=== PATIENT | male | born 1960 | race Caucasian/White ===

== ENCOUNTER 2017-01-13 10:38 | Observation (INO) | payer BC ==
[2017-01-13] MEDS ORDERED: NS 0.9% 1000 ML* 2,000 ML IV ONE (11:04)
[2017-01-13 11:19] LABS: Hematocrit 47 % (42-52); Hemoglobin 16.4 g/dl (14.0-18.0); Mean Corpuscular HGB Conc 35 g/dl (31-36); Mean Corpuscular Hemoglobin 30 pg (27-31); Mean Corpuscular Volume 86 fL (80-94); Mean Platelet Volume 9 um3 (7.4-10.4); Red Blood Count 5.42 10^6/ul (4.0-5.4); Red Cell Distribution Width 13 % (10.5-15)
[2017-01-13 11:30] LABS: Albumin 4.7 g/dL (3.2-5.2); BUN/Creatinine Ratio 14.4 (8-20); Calcium 9.6 mg/dL (8.6-10.3); EGFR African American 88.1 (>60); EGFR Non-African American 68.5 (>60); Globulin 2.5 g/dL (2-4); Magnesium 1.9 mg/dL (1.9-2.7); Potassium 3.6 mmol/L (3.5-5.0); Total Bilirubin 1.3 mg/dL (0.2-1.0); Total Protein 7.2 g/dL (6.4-8.9)
[2017-01-13] MEDS ORDERED: Aspirin Low Dose CHEW TAB* 81 MG PO ONE (11:36)
[2017-01-13 11:57] LABS: TSH (Thyroid Stimulating Horm) 2.3 mcIU/mL (0.34-5.60)
--- NOTE | 2017-01-13 12:23 | RAD ---
INDICATION: Short of breath. Pneumonia COMPARISON: None TECHNIQUE: An AP portable view obtained at 1116 hours is submitted. FINDINGS: Bones/Soft Tissues: There are no acute bony findings. Cardiomediastinal: The cardiomediastinal silhouette is normal. Lungs: There are no infiltrates. Pleura: There are no pleural effusions. Other: None IMPRESSION: NEGATIVE EXAMINATION.
--- NOTE | 2017-01-13 12:59 | ED ---
[place] Billy, scribed for Indra Franks MD on 01/13/17 at 1131 . Palpitations / Dysrhythmia - HPI Summary HPI Summary: Patient is a 56 year-old male coming to [facility] for evaluation of palpitations this morning at approximately 1000. Patient was cleaning out the glove box of his truck when he began to feel a fluttering sensation in his chest. 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 He visited his in-laws, who have a pulse oximiter, and he said his heart rate and rhythm were both irregular. When asked if he had chest pain, he states that he may have had chest tightness, but he is not clear in his description. He denies any pain or swelling in his legs. No diaphoresis this morning. Positive headache. He denies any changes in his normal routine. Patient had two cups of coffee this morning, as usual. He states that the only change was that he took 2x Tylenol last night for his back pain, which he normally does not. Takes daily ASA. Denies any recent travel. He has not had any recent stress tests in the last 6 months. - History of Current Complaint Chief Complaint: EDDysrhythmPalp Time Seen by Provider: 01/13/17 11:08 Hx Obtained From: Patient Onset/Duration: Gradual Onset, Lasting Hours, Still Present Timing: Constant Severity Initially: Moderate Severity Currently: Moderate Character: Fluttering Aggravating: Nothing Alleviating: Nothing Associated Signs & Symptoms: Chest Pain - tightness, Shortness of Breath - Allergy/Home Medications Allergies/Adverse Reactions: Allergies Allergy/AdvReac Type Severity Reaction Status Date / Time No Known Allergies Allergy Verified 01/13/17 12:30 Home Medications: Home Medications Allopurinol TAB* [Zyloprim 100 MG TAB*] 100 mg PO DAILY 01/13/17 [History Confirmed 01/13/17] Enalapril Maleate & Hydrochlor [Enalapril Maleate/Hydroch 5-12.5 mg] 1 tab PO BID 01/13/17 [History Confirmed 01/13/17] Nystatin/Triamcinolone CR(NF) [Mycolog CREAM(NF)] 1 applic TOPICAL BID 01/13/17 [History Confirmed 01/13/17] Omeprazole CAP* [Prilosec CAP* 20 MG] 20 mg PO DAILY 01/13/17 [History Confirmed 01/13/17] metFORMIN* [Glucophage 500 MG TAB *] 500 mg PO BID 01/13/17 [History Confirmed 01/13/17] PMH/Surg Hx/FS Hx/Imm Hx Endocrine/Hematology History: Reports: Hx Diabetes Cardiovascular History: Reports: Hx Hypertension GI History: Reports: Hx Gastroesophageal Reflux Disease Musculoskeletal History: Reports: Hx Back Problems Infectious Disease History: Yes Infectious Disease History: Denies: Traveled Outside the [place] in Last 30 Days - Family History Known Family History: Positive: Cardiac Disease - mother [place] at age 46, Blood Disorder - Clotting disorder Family History: Mother and sister with breath cancer. Grandmother with lymphoma. Brother with brain tumor. Father is alive and well. - Social History Alcohol Use: None Substance Use Type: Reports: None Smoking Status (MU): Never Smoked Tobacco Review of Systems Negative: Fever, Chills, Skin Diaphoresis Negative: Sore Throat, Ear Ache, Nasal Discharge Positive: Palpitations, Chest Pain - tightness Positive: Shortness Of Breath. Negative: Cough Negative: Abdominal Pain, Vomiting, Diarrhea, Nausea Positive: Headache All Other Systems Reviewed And Are Negative: Yes Physical Exam - Summary Physical Exam Summary: The patient is well-nourished in no acute distress and in no acute pain. The skin is warm and dry and skin color reflects adequate perfusion. HEENT: The head is normocephalic and atraumatic. The pupils are equal and reactive. The conjunctivae are clear and without drainage. Nares are patent and without drainage. Mouth reveals moist mucous membranes and the throat is without erythema and exudate. The external ears are intact. The ear canals are patent and without drainage. The tympanic membranes are intact. Neck is supple with full range of motion and non-tender. There are no carotid bruits. There is no neck vein distension. Respiratory: Chest is non-tender. Lungs are clear to auscultation and breath sounds are symmetrical and equal. Cardiovascular: Heart is regularly tachycardic. There is no murmur or rub auscultated. There is no peripheral edema and pulses are symmetrical and equal. Abdomen: The abdomen is soft and non-tender. There are normal bowel sounds heard in all four quadrants and there is no organomegaly palpated. No CVA tenderness. Musculoskeletal: There is no back pain noted. Extremities are non-tender with full range of motion. There is good capillary refill. There is no peripheral edema or calf tenderness elicited. Neurological: Patient is alert and oriented to person, place and time. The patient has symmetrical motor strength in all four extremities. Cranial nerves are grossly intact. Deep tendon reflexes are symmetrical and equal in all four extremities. Psychiatric: The patient has an appropriate affect and does not exhibit any anxiety or depression. Triage Information Reviewed: Yes Vital Signs On Initial Exam: Initial Vitals Temp Pulse Resp BP Pulse Ox 98.2 F 70 18 121/106 99 01/13/17 10:38 01/13/17 10:38 01/13/17 10:38 01/13/17 10:38 01/13/17 10:38 Vital Signs Reviewed: Yes - [place] Coma Scale Coma Scale Total: 15 Diagnostics - Vital Signs Vital Signs Temp Pulse Resp BP Pulse Ox 01/13/17 11:00 124 20 142/92 98 01/13/17 10:52 105 96 01/13/17 10:49 154/91 01/13/17 10:38 98.2 F 70 18 121/106 99 - Laboratory Lab Results: Lab Results 01/13/17 Range/Units 11:00 WBC 7.0 (3.5-10.8) 10^3/ul RBC 5.42 H (4.0-5.4) 10^6/ul Hgb 16.4 (14.0-18.0) g/dl Hct 47 (42-52) % MCV 86 (80-94) fL MCH 30 (27-31) pg MCHC 35 (31-36) g/dl RDW 13 (10.5-15) % Plt Count 189 (150-450) 10^3/ul MPV 9 (7.4-10.4) um3 Neut % (Auto) 57.9 (38-83) % Lymph % (Auto) 25.8 (25-47) % [place] % (Auto) 6.5 (1-9) % Eos % (Auto) 8.6 H (0-6) % Baso % (Auto) 1.2 (0-2) % Absolute Neuts (auto) 4.1 (1.5-7.7) 10^3/ul Absolute Lymphs (auto) 1.8 (1.0-4.8) 10^3/ul Absolute Monos (auto) 0.5 (0-0.8) 10^3/ul Absolute Eos (auto) 0.6 (0-0.6) 10^3/ul Absolute Basos (auto) 0.1 (0-0.2) 10^3/ul Absolute Nucleated RBC 0.02 10^3/ul Nucleated RBC % 0.3 Result Diagrams: 01/13/17 11:00 01/13/17 11:00 Lab Statement: Any lab studies that have been ordered have been reviewed, and results considered in the medical decision making process. - Radiology CXR Radiology Interpretation Completed By: Radiologist - NEGATIVE EXAMINATION. - EKG 1049 EKG Interpretation: sinus tachycardia 100 bpm, normal axis, no STEMI Re-Evaluation - Re-Evaluation First Eval Re-Evaluation Time: 11:46 Change: Unchanged Comment: Labs and imaging reviewed. Course/Dx - Course Assessment/Plan: 56 year-old male coming to [facility] with concern for palpitations this morning. Patient is at moderate risk for WA, score of 4 according to MDCalc. Lactic acid is 2.2. Troponin is 0.00. CXR is negative for acute pathology. EKG shows sinus tachycardia with no ST elevation. In the ED course, patient was given IV fluids for hydration as well as ASA. Patient care reviewed with hospitalist Dr. Chamberlain, who accepted the patient for admission. - Diagnoses Differential Diagnosis/HQI/PQRI: Positive: Cardiomyopathy, Coronary Artery Disease, Hypokalemia, Paroxymal SVT, Other - dehydration, lactic acidosis, Provider Diagnoses: Chest pain, Palpitations - Physician Notifications Discussed Care Of Patient With: Dr. Chamberlain (hospitalist) @ 1150: accepts admission. Discharge - Discharge Plan Condition: Stable Disposition: ADMITTED TO [facility] Referrals: Ashok Welsh MD [Primary Care Provider] - The documentation as recorded by the [place] Billy accurately reflects the service I personally performed and the decisions made by , Indra Franks MD.
[2017-01-13] MEDS ORDERED: Magnesium Oxide TAB* 400 MG PO ONE (15:11)
[2017-01-13] MEDS ORDERED: Potassium Chlor TAB* 20 MEQ TAB.ER PO ONE (15:11)
[2017-01-13] MEDS ORDERED: Baclofen TAB* 10 MG PO PRN (15:12)
[2017-01-13] MEDS ORDERED: Cyclobenzaprine TAB* 10 MG PO PRN (15:12)
[2017-01-13] MEDS ORDERED: Dextrose 50% Syringe 50 ML* 25 GM/50 ML SYRINGE IV PUSH PRN (15:13)
[2017-01-13 15:52] LABS: HDL Cholesterol 29.3 mg/dL
[2017-01-13] MEDS: Insulin LISPRO* 1 UNITS UNIT SUBCUT SCH (15:59)
--- NOTE | 2017-01-13 19:05 | HP ---
HOSPITAL MEDICINE HISTORY AND PHYSICAL: DATE OF ADMISSION: 01/13/17 PRIMARY CARE PHYSICIAN: Dr. Welsh. ATTENDING PHYSICIAN: Amelia Atkinson MD *(dictation provided by Meera Clarke NP) . CHIEF COMPLAINT: Palpitations and left arm discomfort. HISTORY OF PRESENT ILLNESS: Mr. Patel is a 56-year-old male with past medical history of hypertension and diabetes who presents to the hospital today with concern for palpitations and odd sensation in his left arm. Mr. Patel states that last evening he had a little bit more back pain than usual and therefore took 2 Tylenol PM. He was able to fall asleep easily. He does have history of chronic back and neck pain. He woke up this morning and was feeling okay. 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 When he got back home, he was cleaning out the glove box when he had a feeling of palpitations in his chest. He describes feeling his heart pounding and beating quickly. In the past he had sometimes associated these symptoms with spasms in his esophagus. 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 On the way up there, he felt like he was a little bit more short of breath than usual and also felt an odd sensation in his left arm. He denies any discrete chest pain. Palpitations continued and he ultimately called his daughter to bring him to the emergency room for evaluation. In the emergency room, he has no further sensation of discomfort or palpitations. He states he has had no fevers, no chills, no cough, no abdominal pain. He has been eating and drinking normally. In the emergency room, Mr. Patel had an EKG which showed a sinus rhythm with a heart rate of 100. There is no evidence of ischemia. He had a first troponin which was 0.00, but based on his concern for palpitations and chest pain, Hospital Medicine was called regarding admission. PAST MEDICAL HISTORY: 1. Hypertension. 2. GERD. 3. History of chronic sinusitis. 4. Obstructive sleep apnea with home CPAP. 5. Type 2 diabetes, noninsulin dependent. 6. Gout. MEDICATIONS: 1. Econazole 1% cream 1 application topically b.i.d. 2. Enalapril/hydrochlorothiazide 5/12.5 mg 1 tab p.o. b.i.d. 3. Nystatin/triamcinolone cream 1 application topically b.i.d. 4. Metamucil 0.52 g p.o. daily. 5. Metformin 500 mg p.o. b.i.d. 6. Allopurinol 100 mg p.o. daily. 7. Aspirin 81 mg p.o. daily. 8. Baclofen 10 mg p.o. t.i.d. p.r.n. 9. Cholecalciferol 1000 units p.o. daily. 10. Cyclobenzaprine 10 mg p.o. t.i.d. 11. Omeprazole 20 mg p.o. daily. ALLERGIES: No known drug allergies. FAMILY HISTORY: The patient reports his mother had breast cancer and also heart attack at age 40. Sister had breast cancer. Grandmother had lymphoma. Brother had a brain tumor. SOCIAL HISTORY: No history of tobacco use or drug use. The patient states he drinks alcohol occasionally. The last drink was 2 weeks ago. REVIEW OF SYSTEMS: A 14-point review of systems was completed on Mr. Patel and all those not mentioned above were negative. PHYSICAL EXAMINATION GENERAL: Mr. Patel is sitting up in the bed, he is in no acute distress. He is calm and cooperative with my examination. VITAL SIGNS: Temperature 98.2, heart rate 94, respiratory rate 24, O2 saturation 96% on room air, blood pressure 125/81. HEENT: Extraocular movements are intact. LUNGS: Clear to auscultation bilaterally with no accessory muscle use and good aeration. HEART: S1 and S2. No murmur, rub, or gallop and regular. ABDOMEN: Soft, nontender with bowel sounds positive x4. EXTREMITIES: No cyanosis or edema. SKIN: Intact. NEUROLOGIC: He is alert and oriented x3. Moves all extremities equally. There is no facial asymmetry or focal weakness. DIAGNOSTIC STUDIES/LAB DATA: Sodium 136, potassium 3.6, chloride 102, serum bicarbonate 24, BUN 16, creatinine 1.11, glucose 155, lactic acid 2.2, troponin 0.00, TSH 2.30. Chest x-ray shows negative examination. EKG shows sinus rhythm with heart rate of 100 and no evidence of ischemia. ASSESSMENT/PLAN: Mr. Patel is a 56-year-old male with past medical history of hypertension, obesity and diabetes as well as obstructive sleep apnea on CPAP, who presents today to the hospital with concern for palpitations, mild shortness of breath and "funny feeling" in his left arm. Plans are for observation in the hospital for the followin. Palpitations. The patient's description of his symptoms are certainly concerning for atrial fibrillation. He states that he has had these symptoms on and off for many years, and has always thought they were associated with his esophagus and GERD. Although this is possible, I think it is prudent to monitor him overnight with telemetry monitoring. He has risk factors of caffeine use, intermittent binge drinking, hypertension and obesity. I did prenatal genetic counselor the patient that if atrial fibrillation is not found during this hospitalization that it would be important for him to follow up with his primary care physician regarding outpatient monitoring as well. 2. Left arm "funny feeling" and shortness of breath. This was in the setting of palpitations and could be related to potential atrial fibrillation. However , the patient has extensive risk factors for coronary artery disease with hypertension, diabetes, and obesity. Plan for troponins x2 this evening and then stress test tomorrow. 3. Obstructive sleep apnea. Continue home CPAP. 4. Hypertension. Plan to continue home enalapril and hydrochlorothiazide. 5. Chronic back pain. Continue baclofen or Flexeril as needed. 6. Type 2 diabetes. Plan for insulin as needed with blood glucose sliding scale with meals. Hold metformin. 7. DVT prophylaxis with heparin subcu. 8. Disposition to telemetry floor. TIME SPENT: Approximately 60 minutes were spent on the admission of this patient; more than half of the time spent with the patient at the bedside, reviewing the events leading up to this hospitalization, performing the physical examination and reviewing the plan of care. MEERA CLARKE NP CC: Dr. Welsh* [id number]/[facility] #: [id number] DOMENICA
[2017-01-13] MEDS ORDERED: Omeprazole CAP* 20 MG PO SCH (22:00)
[2017-01-13] MEDS: Enalapril TAB* 5 MG PO SCH (22:51)
[2017-01-13] MEDS: Heparin VIAL(*) 5000 UNITS/ML VIAL (FIVE THOUSAND) SUBCUT SCH (22:52)
[2017-01-13] MEDS: Hydrochlorothiazide TAB* 25 MG PO SCH (22:52)
[2017-01-14] MEDS: Heparin VIAL(*) 5000 UNITS/ML VIAL (FIVE THOUSAND) SUBCUT SCH ×2 (07:08→12:55)
[2017-01-14] MEDS ORDERED: Allopurinol TAB* 100 MG PO SCH (09:00)
[2017-01-14] MEDS ORDERED: Enalapril TAB* 5 MG PO SCH (09:00)
[2017-01-14] MEDS ORDERED: Hydrochlorothiazide TAB* 25 MG PO SCH (09:00)
[2017-01-14] MEDS ORDERED: Aspirin EC Low Dose* 81 MG TAB.EC PO SCH (09:00)
[2017-01-14] MEDS ORDERED: Cholecalciferol TAB* 1000 UNITS PO SCH (09:00)
[2017-01-14] MEDS: Insulin LISPRO* 1 UNITS UNIT SUBCUT SCH ×2 (11:15→11:16)
--- NOTE | 2017-01-14 11:39 | RAD ---
Edited for charges. INDICATION: Hypertension with a family history of cardiac disease. COMPARISON: Chest x-ray January 13, 2017 TECHNIQUE: SPECT imaging was performed. Rest images were acquired following the intravenous injection of 10.7 millicuries of technetium 99m tetrofosmin at 0635 hours. At 1010 hours stress images were acquired following the intravenous administration of 25.02 millicuries of technetium 99m tetrofosmin. The patient received intravenous Lexiscan prior to the stress image acquisition. FINDINGS: There are no defects of the stress-induced or fixed nature. The cardiac chamber size is normal. There are no wall motion abnormalities. The ejection fraction is calculated at 60% during stress imaging. IMPRESSION: No scintigraphic evidence of ischemia or infarction. ASSESSMENT: Low risk MTDD
[2017-01-14 11:47] VITALS: BP 124/82
[2017-01-14] MEDS: Enalapril TAB* 5 MG PO SCH (12:53)
[2017-01-14] MEDS: Hydrochlorothiazide TAB* 25 MG PO SCH (12:54)
--- NOTE | 2017-01-14 14:02 | PN ---
Subjective Date of Service: 01/14/17 Interval History: Mr. Patel states that he is feeling well today and is eager for discharge. Objective Active Medications: Allopurinol (Zyloprim Tab*) 100 mg PO DAILY CHEPE Aspirin (Aspirin Ec Low Dose*) 81 mg PO DAILY [facility]PE Baclofen (Lioresal Tab*) 10 mg PO TID PRN Cholecalciferol (Vitamin D Tab*) 1,000 units PO DAILY CHEPE Cyclobenzaprine HCl (Flexeril Tab*) 10 mg PO TID PRN Dextrose (D50w Syringe 50 Ml*) 12.5 gm IV PUSH .FOR FS < 60 - SS PRN Enalapril Maleate (Vasotec Tab*) 5 mg PO BID CHEPE Heparin Sodium (Porcine) (Heparin Vial(*)) 5,000 units SUBCUT Q8HR CHEPE Hydrochlorothiazide (Hydrodiuril Tab*) 12.5 mg PO BID [facility] Insulin Human Lispro (Humalog*) 0 units SUBCUT AC CHEPE Omeprazole (Prilosec Cap*) 20 mg PO 2100 CHEPE Vital Signs 01/13/17 01/13/17 01/13/17 16:08 19:20 19:45 Temperature 97.6 F 98.2 F Pulse Rate 68 68 67 Respiratory 22 19 16 Rate Blood Pressure 120/71 128/54 118/68 (mmHg) O2 Sat by Pulse 96 98 96 Oximetry 01/13/17 01/13/17 01/14/17 23:20 23:44 03:19 Temperature 97.2 F 97.2 F 97.7 F Pulse Rate 69 69 60 Respiratory 20 20 20 Rate Blood Pressure 107/49 107/49 114/44 (mmHg) O2 Sat by Pulse 98 98 94 Oximetry 01/14/17 01/14/17 07:49 11:28 Temperature 98.1 F 98.2 F Pulse Rate 68 74 Respiratory 18 18 Rate Blood Pressure 108/69 124/82 (mmHg) O2 Sat by Pulse 98 95 Oximetry Oxygen Devices in Use Now: None Appearance: Male sitting up in chair in NAD Respiratory: Symmetrical Chest Expansion and Respiratory Effort, Clear to Auscultation Cardiovascular: NL Sounds; No Murmurs; No JVD, No Edema Extremities: No Edema Skin: No Rash or Ulcers Neurological: Alert and Oriented x 3, NL Muscle Strength and Tone Nutrition: Taking PO's Result Diagrams: 01/13/17 11:00 01/13/17 11:00 Additional Lab and Data: Lab Results 01/13/17 Range/Units 11:00 WBC 7.0 (3.5-10.8) 10^3/ul RBC 5.42 H (4.0-5.4) 10^6/ul Hgb 16.4 (14.0-18.0) g/dl Hct 47 (42-52) % MCV 86 (80-94) fL MCH 30 (27-31) pg MCHC 35 (31-36) g/dl RDW 13 (10.5-15) % Plt Count 189 (150-450) 10^3/ul MPV 9 (7.4-10.4) um3 Neut % (Auto) 57.9 (38-83) % Lymph % (Auto) 25.8 (25-47) % [place] % (Auto) 6.5 (1-9) % Eos % (Auto) 8.6 H (0-6) % Baso % (Auto) 1.2 (0-2) % Absolute Neuts (auto) 4.1 (1.5-7.7) 10^3/ul Absolute Lymphs (auto) 1.8 (1.0-4.8) 10^3/ul Absolute Monos (auto) 0.5 (0-0.8) 10^3/ul Absolute Eos (auto) 0.6 (0-0.6) 10^3/ul Absolute Basos (auto) 0.1 (0-0.2) 10^3/ul Absolute Nucleated RBC 0.02 10^3/ul Nucleated RBC % 0.3 Assess/Plan/Problems-Billing Assessment: Mr. Patel is a 56 yo male with a PMH of HTN and DM who was admitted with palpitations and left arm discomfort. - Patient Problems (1) Palpitations Comment: No evidence of arrhythmia on telemetry, however patient did not have any symptoms of palpitations while admitted. Recommend follow up with PCP and Cardiology for outpatient monitoring as have high suspicion for afib given description of symptoms. Patient aware and plans follow up with Dr. Kelley if possible. (2) Left arm pain Comment: Resolved. Concerned that this was a cardiac equivalent. However trops and stress test negative. (3) Hypertension Comment: BP well controlled continue home meds. (4) Diabetes Comment: Continue home metformin. Status and Disposition: Discharge to home.
--- NOTE | 2017-01-15 04:33 | DS ---
[facility] MEDICINE DISCHARGE SUMMARY: DATE OF ADMISSION: 01/13/17 DATE OF DISCHARGE: 01/14/17 ATTENDING PHYSICIAN: Anne Cooper MD * (dictated by Meera Clarke NP) PRIMARY CARE PHYSICIAN: Dr. Welsh. PRIMARY DIAGNOSIS: Palpitations with left arm discomfort. SECONDARY DIAGNOSES: 1. Hypertension. 2. Diabetes, [id number]. 3. Chronic sinusitis. 4. Obstructive sleep apnea, home CPAP. 5. Gout. 6. Gastroesophageal reflux disease. MEDICATIONS AT THE TIME OF DISCHARGE: No medication changes. 1. Econazole 1% cream 1 application topically b.i.d. 2. Enalapril/hydrochlorothiazide 5/12.5 mg 1 tab p.o. b.i.d. 3. Nystatin/triamcinolone cream 1 application topically b.i.d. 4. Metamucil 0.52 g p.o. daily. 5. Metformin 500 mg p.o. b.i.d. 6. Allopurinol 100 mg p.o. daily. 7. Aspirin 81 mg p.o. daily. 8. Baclofen 10 mg p.o. t.i.d. p.r.n. 9. Cholecalciferol 1000 units p.o. daily. 10. Cyclobenzaprine 10 mg p.o. t.i.d. 11. Omeprazole 20 mg p.o. daily. HOSPITAL COURSE: Mr. Patel is a 56-year-old male with a past medical history as outlined above, who presented to the emergency room on 01/13/17 out of concern for palpitations associated with left arm discomfort. Please see the dictated H and P from myself for full details. In brief, the patient had palpitations on the left side of his chest, which seemed worse with activity and were associated with unusual feeling in his left arm, though not discretely called pain. The patient checked his O2 saturation and heart rate via home monitor and found that his heart rate was irregular. On arrival to the emergency room, his heart rate was elevated, though he has not been captured to have any heart arrhythmia in the ED. His first troponin was negative. His labs were unremarkable. Mr. Patel was admitted to the hospital. He had repeat troponins x2, which were all 0.00. He showed no evidence of arrhythmia on telemetry. He went on to have a stress test out of concern for the possibility that his left arm discomfort was cardiac equivalent. This stress test was read as low risk. The patient has had no evidence of arrhythmia while on telemetry; however, he has also had no palpitations. I am quite concerned that based on the description of Mr. Patel' symptoms that he has atrial fibrillation, though we did not catch that here during this hospitalization. I recommend that he follow up with his primary care physician and then Cardiology regarding placement of a monitor for arrhythmia or AFib. I have counseled the patient that AFib would put him at higher risk for stroke. Based on his history of hypertension and diabetes that he would be a good candidate for prophylaxis with anticoagulation. Mr. Patel is medically stable for discharge to home. DISPOSITION: To home. DIET: Consistent carbohydrate, heart healthy. ACTIVITY: As tolerated. FOLLOW-UP PLANS: Please follow up with primary care physician and Cardiology regarding placement of outpatient monitor. TIME SPENT: Approximately 60 minutes were spent on the discharge of this patient, more than half that time spent with the patient at the bedside reviewing the events leading up to this hospitalization, performing the physical examination, and reviewing the plan of care. MEERA CLARKE NP CC: Dr. Welsh* [id number]/[facility] #: [id number] DOMENICA
== END 2017-01-14 14:47 | disposition home or self-care (01) ==
LOC: ED 10:38 → MEDTELE 11:59
PROVIDERS: ADMIT Internal Medicine; ATTEND Hospitalist
DX: R00.2 Palpitations (principal); M79.602 Pain in left arm; R06.02 Shortness of breath; I10 Essential (primary) hypertension; E11.9 Type 2 diabetes mellitus without complications; J32.9 Chronic sinusitis, unspecified; G47.33 Obstructive sleep apnea (adult) (pediatric); M10.9 Gout, unspecified; K21.9 Gastro-esophageal reflux disease without esophagitis; M54.9 Dorsalgia, unspecified; G89.29 Other chronic pain; R94.31 Abnormal electrocardiogram [ECG] [EKG]; Z79.82 Long term (current) use of aspirin; Z79.84 Long term (current) use of oral hypoglycemic drugs; Z79.899 Other long term (current) drug therapy
CPT/HCPCS: 36415; 71010; 78452; 80053; 80061; 83605; 83735; 83880; 84443; 84484; 85025; 85610; 93005; 93017; 96360; 96361; 99284; A9270-GY; A9502; G0378; J1644